=== PATIENT | male | born 1970 | race African-American/Black ===

== ENCOUNTER 2019-04-10 16:26 | Emergency (ER) | payer MEDICAID ==
[~2019-04-10] VITALS: Ht 162.6 cm; Wt 77.5 kg
[2019-04-10] MEDS ORDERED: LISI-604 PO (17:44)
[2019-04-10] MEDS ORDERED: IBUPROFEN 600MG TABLET PO ONE (22:30)
[2019-04-10] MEDS ORDERED: LISINOPRIL 20MG TABLET PO ONE (22:30)
[2019-04-10 23:01] VITALS: BP 136/82
== END 2019-04-10 23:05 | disposition home or self-care (01) ==
LOC: ER 16:26
DX: J06.9 Acute upper respiratory infection, unspecified (principal); I10 Essential (primary) hypertension; F17.290 Nicotine dependence, other tobacco product, uncomplicated; F12.10 Cannabis abuse, uncomplicated
CPT/HCPCS: 99283